=== PATIENT | female | born 1985 | race American Indian/Alaskan Native ===

== ENCOUNTER 2021-07-06 09:52 | Inpatient (IN) | payer OTHER ==
[2021-07-06] MEDS ORDERED: BUTORPHANOL 2 MG/1 ML INJ IV PRN ×2 (10:22→10:54)
[2021-07-06] MEDS ORDERED: fentaNYL 100 MCG/2 ML INJ IV PRN ×2 (10:22→10:54)
[2021-07-06] MEDS ORDERED: CARBOPROST TROMETHAMINE 250 MCG/1 ML INJ IM PRN (10:22)
[2021-07-06] MEDS ORDERED: LIDOCAINE (2%) 20 MG/1 ML VIAL 20 ML MDV INFILTRATI ONE (10:22)
[2021-07-06] MEDS ORDERED: ePHEDrine SULFATE 50 MG/1 ML INJ IV PRN (10:22)
[2021-07-06] MEDS ORDERED: LOPERAMIDE 2 MG CAP PO PRN (10:22)
[2021-07-06] MEDS ORDERED: METHYLERGONOVINE MALEATE 0.2 MG/ML VIAL IM PRN (10:22)
[2021-07-06] MEDS ORDERED: TERBUTALINE 1 MG/1 ML INJ SUB-Q PRN (10:22)
[2021-07-06] MEDS ORDERED: miSOPROStol 200 MCG TAB PR PRN (10:22)
[2021-07-06] MEDS ORDERED: ONDANSETRON 4 MG/2 ML INJ IV PRN ×2 (10:22→13:25)
[2021-07-06] MEDS ORDERED: MINERAL OIL 30 ML ORAL LIQD PO PRN (10:22)
[2021-07-06] MEDS ORDERED: OXYTOCIN 10 UNIT/1 ML INJ IM PRN (10:22)
[2021-07-06] MEDS ORDERED: NalbUPHINE 10 MG/1 ML INJ IV PRN (10:22)
[2021-07-06] MEDS ORDERED: OXYTOCIN DRIP 30,000 MILLIUNITS/500 ML BAG IV ONE (10:27)
[2021-07-06] MEDS ORDERED: LACTATED RINGERS 2,000 ML ONE (10:27)
[2021-07-06] MEDS ORDERED: fentaNYL 100 MCG/2 ML INJ ONE (10:28)
[2021-07-06] MEDS ORDERED: LACTATED RINGERS 1,000 ML IV SCH (10:30)
[2021-07-06 10:46] LABS: Hematocrit 36.3 % (30.3-42.9); Hemoglobin 12.6 gm/dl (10.1-14.3); Mean Corpuscular HGB Conc 35 % (30-34); Mean Corpuscular Volume 91 fl (79-97); Platelet Count 143 K/mm3 (140-440); Red Blood Count 3.97 M/mm3 (3.65-5.03); Red Cell Distribution Width 13.4 % (13.2-15.2)
[2021-07-06] MEDS ORDERED: ACETAMINOPHEN 325 MG TAB PO PRN (10:54)
[2021-07-06] MEDS: OXYTOCIN DRIP 30 UNITS/500 ML BAG IV SCH ×2 (11:51→12:27)
--- NOTE | 2021-07-06 12:49 | History and Physical Report ---
History of Present Illness Date of examination: 07/06/21 Date of admission: 07/06/21 10:55 Chief complaint: c/o uc times several hours History of present illness: 36 y/o AMA arrived to [facility] @ 39.1 wks with c/o uc x several hours. She denied VB or LOF and admitted to active FM. Pt initiated her pnc @ [facility] at 12wks. She has a hx of sickle cell trait, HSV, abnormal pap with leep, fibroids, anemia, spon ab @ 16 wks, and an abnormal 1 hr gtt with no results of a 3hr gtt on pt's MR; however, pt stated her 3hr gtt was neg. Pt was followed by [facility] r/t med hx. She had a cerclage for cervical shortening per [facility]. Her last pap dated 06/21/21 was neg and her GBS was neg. Pt was found to be in active labor with SROM (cl fluid), but she had no recollection of LOF. She was admitted to L&D for delivery. 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 History: abnormal PAP smear, herpes, other (abnormal pap with leep, cerclage for cervical shortening) Family/Genetic History: diabetes, hypertension, cancer Social history: single, full code - Obstetrical History Expected Date of Delivery: 07/12/21 Actual Gestation: 39 Week(s) 1 Day(s) : 3 Para: 1 Hx # Term Pregnancies: 1 Number of Pregnancies: 0 Spontaneous Abortions: 1 Induced : 0 Number of Living Children: 1 Medications and Allergies Allergies Allergy/AdvReac Type Severity Reaction Status Date / Time No Known Allergies Allergy Unverified 07/06/21 10:09 Home Medications Medication Instructions Recorded Confirmed Last Taken Type Iron 1 tab PO BID 07/06/21 07/06/21 2 Days Ago History ~07/04/21 One Daily Tablet 1 tab PO DAILY 07/06/21 07/06/21 07/05/21 History valACYclovir [Valtrex] 500 mg PO DAILY 07/06/21 07/06/21 07/05/21 History Active Meds: Active Medications Acetaminophen (Acetaminophen 325 Mg Tab) 650 mg PO Q4H PRN PRN Reason: Pain, Mild (1-3) Butorphanol Tartrate (Butorphanol 2 Mg/1 Ml Inj) 2 mg IV Q2H PRN PRN Reason: Pain , Severe (7-10) Butorphanol Tartrate (Butorphanol 2 Mg/1 Ml Inj) 2 mg IV Q2H PRN PRN Reason: Pain , Severe (7-10) Carboprost Tromethamine (Carboprost Tromethamine 250 Mcg/1 Ml Inj) 250 mcg IM ONCE PRN PRN Reason: Uterine Bleeding Ephedrine Sulfate (Ephedrine Sulfate 50 Mg/1 Ml Inj) 10 mg IV Q2M PRN PRN Reason: Hypotension Fentanyl (Fentanyl 100 Mcg/2 Ml Inj) 100 mcg IV Q2H PRN PRN Reason: Pain,Severe (7-10) LABOR PAIN Fentanyl (Fentanyl 100 Mcg/2 Ml Inj) 100 mcg IV Q2H PRN PRN Reason: Pain,Severe (7-10) LABOR PAIN Lactated Ringer's (Lactated Ringers) 1,000 mls @ 125 mls/hr IV DIRECT MINA Oxytocin/Sodium Chloride (Pitocin/Ns 30 Unit/500ml) 30 units in 500 mls @ 40 mls/hr IV TITR MINA; Protocol Last Admin: 07/06/21 12:27 Dose: 125 ml/hr, 125 mls/hr Documented by: Loperamide HCl (Loperamide 2 Mg Cap) 2 mg PO ONCE PRN PRN Reason: give with Hemabate Methylergonovine Maleate (Methylergonovine Maleate 0.2 Mg/Ml Vial) 0.2 mg IM ONCE PRN PRN Reason: Uterine Bleeding Mineral Oil (Mineral Oil 30 Ml Oral Liqd) 30 ml PO QHS PRN PRN Reason: Constipation Misoprostol (Misoprostol 200 Mcg Tab) 800 mcg IA ONCE PRN PRN Reason: Uterine Bleeding Nalbuphine HCl (Nalbuphine 10 Mg/1 Ml Inj) 10 mg IV Q2H PRN PRN Reason: Pain, Moderate (4-6) Ondansetron HCl (Ondansetron 4 Mg/2 Ml Inj) 4 mg IV Q8H PRN PRN Reason: Nausea And Vomiting Oxytocin (Oxytocin 10 Unit/1 Ml Inj) 10 unit IM ONCE PRN PRN Reason: Uterine Bleeding Terbutaline Sulfate (Terbutaline 1 Mg/1 Ml Inj) 0.25 mg SUB-Q ONCE PRN PRN Reason: Hyperstimulation/Hypertonicity Review of Systems All systems: negative Eyes: deferred Ears, nose, mouth and throat: deferred Breasts: normal Rectal Exam: normal exam-external/orifice - Vital Signs Vital signs: Vital Signs Temp Resp Pulse Ox 97.5 F L 20 99 07/06/21 10:14 07/06/21 10:14 07/06/21 10:14 Temp Pulse Resp BP Pulse Ox 98.3 F 91 H 20 128/59 100 07/06/21 12:05 07/06/21 12:31 07/06/21 10:14 07/06/21 12:08 07/06/21 12:31 - Physical Exam Breasts: Positive: normal Abdomen: Positive: normal appearance, soft, normal bowel sounds Genitourinary (Female): Positive: normal external genitalia, normal perenium Vulva: both: normal Vagina: Positive: normal moisture Uterus: Positive: enlarged, normal contour Adnexa: both: normal Anus/Rectum: Positive: normal perianal skin Extremities: Positive: normal - Obstetrical Cervical Dilatation: 6 Cervical Effacement Percentage: 80 station: -2 Uterine Contraction Pattern: Regular Uterine Tone Measurement Phase: Resting Uterine Contraction Intensity: Strong/Firm Results Result Diagrams: 07/06/21 10:00 Abnormal lab results 07/06/21 Range/Units 10:00 MCHC 35 H (30-34) % All other labs normal. Assessment and Plan A: IUP@ 39.1 wks AMA SROM (cl fluid) time unknown Sickle trait Hx 16 wks spon ab Fibroids HSV with neg GBS p: Admit to L&D Continuous monitoring Pain med/Epidural prn Anticipate
[2021-07-06] MEDS ORDERED: oxyCODONE /ACETAMINOPHEN 5-325MG TAB PO PRN (13:25)
[2021-07-06] MEDS ORDERED: PROMETHAZINE 25 MG TAB PO PRN (13:25)
[2021-07-06] MEDS ORDERED: MAGNESIUM HYDROXIDE (MOM) ORAL LIQD UDC PO PRN (13:25)
[2021-07-06] MEDS ORDERED: LANOLIN/ZINC/DIMETHICONE (LANSINOH) 7 GM TP PRN (13:25)
[2021-07-06] MEDS ORDERED: PROMETHAZINE 25 MG RECT SUPP PR PRN (13:25)
[2021-07-06] MEDS ORDERED: WITCH HAZEL/ GLYCERIN PAD TP PRN (13:25)
[2021-07-06] MEDS ORDERED: diphenhydrAMINE 25 MG CAP PO PRN (13:25)
--- NOTE | 2021-07-06 13:25 | Procedure Note ---
OB Delivery Note - Delivery Date of Delivery: 07/06/21 Surgeon: JIM GRAVES Estimated blood loss: 300cc - Vaginal Delivery presentation: vertex Delivery position: OA Intrapartum events: precipitous labor- <3hr, other(please specify) (srom with cl fluid and time of rupture unknown) Delivery induction: none Delivery monitor: external FHT, external uterine Route of delivery: Delivery placenta: spontaneous Delivery cord: 3 umbilical vessels Episiotomy: none Delivery laceration: none Anesthesia: none Delivery comments: of a viable female infant in OA position. Spontaneous delivery of head and shoulders. Immediately after delivery was placed on mom's chest for skin to skin bonding. Delayed cord clamping while NICU nurse dried and stimulated baby. Cord was double clamped and FOB was guided in cutting the cord. Infant was taken to warmer by NICU nurse for an initial assess 9/9. Spontaneous delivery of an intact placenta with 3CV. FF@U2 with fundal massage and IV Pitocin. An exploration of tears revealed none. QBL 325cc FW 3220Gms. Mom and baby was left in stable condition with baby. - Infant A at 1 minute: 9 at 5 minutes: 9 Infant Gender: Female
[2021-07-06] MEDS: IBUPROFEN 600 MG TAB PO SCH (20:58)
[2021-07-07 05:04] LABS: Hematocrit 32.6 % (30.3-42.9); Hemoglobin 10.9 gm/dl (10.1-14.3)
[2021-07-07] MEDS: IBUPROFEN 600 MG TAB PO SCH ×5 (05:23→20:06)
[2021-07-07] MEDS ORDERED: FERROUS SULFATE 325 MG TAB PO SCH (11:00)
--- NOTE | 2021-07-07 12:40 | Progress Note ---
Assessment and Plan A: day 1 S/P . Anemia. P: Supplement with iron. Continue routine care. Subjective - Subjective Date of service: 07/07/21 Principal diagnosis: day 1 S/P Patient reports: appetite normal, voiding normally, pain well controlled, flatus, ambulating normally, no dizzy ambulation, no nauseated : doing well Objective - Vital Signs Latest vital signs: Vital Signs Temp Pulse Resp BP BP Pulse Ox Pulse Ox 07/07/21 08:50 99 07/07/21 08:40 98.1 F 83 18 126/76 98 07/07/21 05:23 18 07/07/21 01:37 98.3 F 83 20 111/67 98 07/06/21 21:58 18 07/06/21 20:58 18 07/06/21 20:48 98.5 F 97 H 18 100/55 99 07/06/21 20:02 99 07/06/21 16:22 98.5 F 111 H 18 109/74 97 07/06/21 14:00 98.5 F 86 17 113/73 99 99 07/06/21 13:26 98 H 97 07/06/21 13:24 85 112/68 07/06/21 13:21 84 100 07/06/21 13:16 91 H 100 07/06/21 13:11 88 100 07/06/21 13:06 87 100 07/06/21 13:01 93 H 100 07/06/21 12:58 91 H 86 07/06/21 12:56 93 H 100 07/06/21 12:51 94 H 100 07/06/21 12:46 93 H 100 07/06/21 12:41 89 100 Intake and Output 07/06/21 07/07/21 07/07/21 23:59 07:59 15:59 Intake Total 840 360 Output Total 800 Balance 40 360 Intake: Oral 600 Intake, Free Water 240 360 Output: Urine 800 Void 800 Other: Total, Intake Amount 240 Total, Output Amount 500 # Voids Void 1 - Exam Cardiovascular: Present: Regular rate Lungs: Present: Clear to auscultation Abdomen: Present: normal appearance, soft, normal bowel sounds. Absent: distention, tenderness, guarding, rigidity Uterus: Present: normal, firm, fundal height below umbilicus (FH at 1 FB below umbilicus). Absent: bogginess, tenderness Extremities: Absent: tenderness, edema
--- NOTE | 2021-07-08 06:47 | Progress Note ---
Assessment and Plan A: day 2 S/P . Anemia. P: Discharge patient home today. Discussed with patient discharge instructions and warning signs. Advised patient to continue to take her vitamins and iron supplements at home. Advised patient to avoid intercourse, housework, and lifting. Advised patient to follow up at [facility] OF [facility]ICAL STAFF [facility] clinic in 2 weeks (patient to call for appointment). Patient voiced understanding of all instructions. Subjective - Subjective Date of service: 07/08/21 Principal diagnosis: day 2 S/P Patient reports: appetite normal, voiding normally, pain well controlled, flatus, ambulating normally, no dizzy ambulation, no nauseated : doing well Objective - Vital Signs Latest vital signs: Vital Signs Temp Pulse Resp BP Pulse Ox Pulse Ox 07/08/21 00:11 98.2 F 68 20 97/65 99 07/07/21 20:00 100 07/07/21 19:35 18 07/07/21 16:34 97.7 F 77 18 110/72 98 07/07/21 08:50 99 07/07/21 08:40 98.1 F 83 18 126/76 98 Intake and Output 07/07/21 07/07/21 07/08/21 15:59 23:59 07:59 Intake Total 360 Balance 360 Intake: Oral 360 Other: Total, Intake Amount 360 # Voids Void 2 - Exam Cardiovascular: Present: Regular rate Lungs: Present: Clear to auscultation Abdomen: Present: normal appearance, soft. Absent: distention, tenderness, guarding, rigidity Uterus: Present: normal, firm, other (FH at 1 FB below umbilicus). Absent: bogginess, tenderness Extremities: Absent: tenderness, edema
--- NOTE | 2021-07-08 06:50 | Discharge Summary ---
Providers - Providers Date of Admission: 07/06/21 10:55 Date of discharge: 07/08/21 Attending physician: RACHEL REID JR, MD Primary care physician: RACHEL REID JR, MD Hospitalization Reason for admission: active labor Delivery: Episiotomy: none Laceration: none Other procedures: none complications: none Discharge diagnosis: IUP at term delivered baby: female Pertinent studies: Labs Hospital course: Stable hospital course Condition at discharge: Good Disposition: 01 HOME / SELF CARE / HOMELESS - Discharge Diagnoses (1) Term delivered Status: Acute (2) Anemia Status: Acute Plan - Provider Discharge Summary Activity: routine, no sex for 6 weeks, no heavy lifting 4 weeks, no strenuous exercise Diet: routine Instructions: routine Additional instructions: Continue taking your vitamins and iron supplements at home. 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 Call your doctor immediately for: * Fever > 100.5 * Heavy vaginal bleeding ( >1 pad per hour) * Severe persistent headache * Shortness of breath * Reddened, hot, painful area to leg or breast - Follow up plan Follow up: PRIMARY CARE, [Referring] - 14 Days
[2021-07-08] MEDS: IBUPROFEN 600 MG TAB PO SCH (06:58)
[2021-07-08 11:25] VITALS: BP 124/72
== END 2021-07-08 11:10 | disposition home or self-care (01) | DRG 806 ==
LOC: TRG 09:52 → APU 09:56 → LD 10:23 → TRG 10:54 → LD 10:55 → OB 13:46
PROVIDERS: ADMIT Obstetrics & Gynecology; ATTEND Obstetrics & Gynecology
PROC: 10E0XZZ Delivery of Products of Conception, External Approach (ICD-10-PCS; principal; 2021-07-06)
DX: O62.3 Precipitate labor (principal); O98.32 Other infections with a predominantly sexual mode of transmission complicating childbirth; Z37.0 Single live birth; Z3A.39 39 weeks gestation of pregnancy; Z20.822 Contact with and (suspected) exposure to COVID-19; A60.00 Herpesviral infection of urogenital system, unspecified; O99.02 Anemia complicating childbirth; D57.3 Sickle-cell trait
CPT/HCPCS: 36415; 85014; 85018; 85027; 86850; 86900; 86901; G0378; J2590; U0003